=== PATIENT | male | born 1960 | race Caucasian/White ===

== ENCOUNTER 2021-04-12 16:43 | Inpatient (IN) ==
[2021-04-12 17:50] LABS: ABS Basophils 0.1 10^3/ul (0-0.2); ABS Eosinophils 0.2 10^3/ul (0-0.6); ABS Lymphocytes 1.2 10^3/ul (1.0-4.8); ABS Monocytes 0.7 10^3/ul (0-0.8); ABS Neutrophils 4.9 10^3/ul (1.5-7.7); Eosinophil % 2.6 %; Hematocrit 41 % (42-52); Hemoglobin 13.5 g/dL (14.0-18.0); Mean Corpuscular HGB Conc 33 g/dL (31-36); Mean Corpuscular Hemoglobin 32 pg (27-31); Mean Corpuscular Volume 97 fL (80-94); Mean Platelet Volume 7.9 fL (7.4-10.4); Nucleated Red Blood Cells % 0.1; Platelet Count 286 10^3/uL (150-450); Red Blood Count 4.25 10^6 /uL (4.18-5.48); Red Cell Distribution Width 14 % (10-15)
[2021-04-12 18:10] LABS: ALT 64 U/L (7-52); AST 76 U/L (13-39); Albumin 3.1 g/dL (3.2-5.2); Albumin/Globulin Ratio 1.5 (1-3); Alkaline Phosphatase 73 U/L (35-149); Anion Gap 2 mmol/L (2-11); Blood Urea Nitrogen 21 mg/dL (6-24); CO2 Carbon Dioxide 37 mmol/L (22-32); Calcium 8.6 mg/dL (8.6-10.3); Chloride 101 mmol/L (101-111); Globulin 2.1 g/dL (2-4); Glucose 84 mg/dL (70-100); Potassium 4.5 mmol/L (3.5-5.0); Sodium 140 mmol/L (135-145); Total Protein 5.2 g/dL (6.4-8.9); eGFR CKD-EPI 102.2 (>60)
[2021-04-12 18:31] LABS: Troponin I 0.04 ng/mL (<0.03)
[2021-04-12] MEDS ORDERED: Iohexol 300 (CONTRAST) 10 ML SDV IV ONE (18:43)
[2021-04-12] MEDS ORDERED: Iohexol 350 (CONTRAST) 500 ML MDV IV ONE (20:35)
[2021-04-12] MEDS ORDERED: Furosemide 40 mg/4 ml IV VIAL IV ONE (22:48)
[2021-04-12 23:24] LABS: Troponin I 0.04 ng/mL (<0.03)
[2021-04-12] MEDS: Albuterol/Ipratropium NEB.SOL (2.5/0.5 MG) 3 ML NEB.SOLN INH SCH (23:33)
[2021-04-12] MEDS: Enoxaparin 40 MG/0.4 ML SYR SUBCUT SCH (23:33)
[2021-04-13 00:06] LABS: TSH Ultra Thyroid Stim Horm 2.25 mcIU/mL (0.34-5.60)
[2021-04-13 00:18] LABS: Folate 12.01 ng/mL (5.90-24.80)
[2021-04-13 00:19] LABS: Vitamin B12 411 pg/mL (180-914)
[2021-04-13 00:39] LABS: Urine Appearance Clear; Urine Bilirubin Negative (Negative); Urine Blood Negative (Negative); Urine Color Yellow; Urine Glucose Negative (Negative); Urine Ketones Negative (Negative); Urine Nitrite Negative (Negative); Urine Protein Negative (Negative); Urine Specific Gravity 1.034 (1.002-1.030); Urine Urobilinogen Positive (Negative)
[2021-04-13 06:16] LABS: Hematocrit 39 % (42-52); Mean Corpuscular HGB Conc 33 g/dL (31-36); Mean Corpuscular Hemoglobin 32 pg (27-31); Mean Corpuscular Volume 98 fL (80-94); Mean Platelet Volume 7.4 fL (7.4-10.4); Platelet Count 273 10^3/uL (150-450); Red Blood Count 4.03 10^6 /uL (4.18-5.48); Red Cell Distribution Width 14 % (10-15); White Blood Count 5.2 10^3/uL (3.5-10.8)
[2021-04-13] MEDS: Albuterol/Ipratropium NEB.SOL (2.5/0.5 MG) 3 ML NEB.SOLN INH SCH ×2 (06:16→11:49)
[2021-04-13 06:36] LABS: Albumin/Globulin Ratio 1.6 (1-3); Calcium 8.3 mg/dL (8.6-10.3); Globulin 1.9 g/dL (2-4); Potassium 4.5 mmol/L (3.5-5.0); Total Bilirubin 0.5 mg/dL (0.2-1.0); Total Protein 4.9 g/dL (6.4-8.9); eGFR CKD-EPI 107.7 (>60)
[2021-04-13 06:43] LABS: ABS Basophils 0.1 10^3/ul (0-0.2); ABS Lymphocytes 0.5 10^3/ul (1.0-4.8); ABS Monocytes 0.1 10^3/ul (0-0.8); ABS Neutrophils 4.5 10^3/ul (1.5-7.7); Eosinophil % 0.1 %; Lymphocyte % 9.8 %
[2021-04-13] MEDS: Mometasone/Formoter 100/5 MDI INH SCH ×2 (07:58→19:29)
[2021-04-13 13:59] LABS: HIV 4th Generation Nonreactive (Nonreactive)
[2021-04-13 14:11] LABS: Hepatitis B Surface Antigen Nonreactive (Nonreactive)
[2021-04-13 14:16] LABS: Hepatitis A Ab IgM Negative (Negative)
[2021-04-13 14:17] LABS: Hepatitis B Core IgM Nonreactive (Nonreactive)
[2021-04-13 14:28] LABS: Hepatitis C Antibody Negative (Negative)
[2021-04-13] MEDS: Albuterol HFA INHALER 8 gm MDI INH SCH ×2 (15:27→19:25)
[2021-04-13] MEDS: Enoxaparin 40 MG/0.4 ML SYR SUBCUT SCH (20:38)
[2021-04-14 06:51] LABS: ABS Basophils 0.1 10^3/ul (0-0.2); ABS Eosinophils 0.1 10^3/ul (0-0.6); ABS Lymphocytes 1.2 10^3/ul (1.0-4.8); ABS Monocytes 0.6 10^3/ul (0-0.8); ABS Neutrophils 5.4 10^3/ul (1.5-7.7); Eosinophil % 1.1 %; Hematocrit 39 % (42-52); Hemoglobin 12.9 g/dL (14.0-18.0); Mean Corpuscular HGB Conc 33 g/dL (31-36); Mean Corpuscular Hemoglobin 32 pg (27-31); Mean Corpuscular Volume 98 fL (80-94); Mean Platelet Volume 7.8 fL (7.4-10.4); Platelet Count 295 10^3/uL (150-450); Red Blood Count 4.02 10^6 /uL (4.18-5.48); Red Cell Distribution Width 14 % (10-15); White Blood Count 7.4 10^3/uL (3.5-10.8)
[2021-04-14 07:07] LABS: ALT 48 U/L (7-52); AST 35 U/L (13-39); Albumin/Globulin Ratio 1.7 (1-3); Alkaline Phosphatase 57 U/L (35-149); Blood Urea Nitrogen 15 mg/dL (6-24); Calcium 8.3 mg/dL (8.6-10.3); Chloride 96 mmol/L (101-111); Globulin 1.8 g/dL (2-4); Glucose 89 mg/dL (70-100); Potassium 4.6 mmol/L (3.5-5.0); Sodium 137 mmol/L (135-145); Total Protein 4.8 g/dL (6.4-8.9); eGFR CKD-EPI 110.3 (>60)
[2021-04-14 07:09] LABS: CO2 Carbon Dioxide 41 mmol/L (22-32)
[2021-04-14] MEDS: Mometasone/Formoter 100/5 MDI INH SCH ×2 (08:39→22:20)
[2021-04-14] MEDS: Albuterol HFA INHALER 8 gm MDI INH SCH ×4 (08:40→22:17)
[2021-04-14] MEDS: Enoxaparin 40 MG/0.4 ML SYR SUBCUT SCH (22:21)
[2021-04-15 05:03] LABS: ABS Basophils 0.1 10^3/ul (0-0.2); ABS Eosinophils 0.1 10^3/ul (0-0.6); ABS Lymphocytes 1.4 10^3/ul (1.0-4.8); ABS Monocytes 0.6 10^3/ul (0-0.8); Eosinophil % 1.2 %; Hematocrit 39 % (42-52); Hemoglobin 12.6 g/dL (14.0-18.0); Lymphocyte % 18.9 %; Mean Corpuscular HGB Conc 33 g/dL (31-36); Mean Corpuscular Hemoglobin 32 pg (27-31); Mean Corpuscular Volume 98 fL (80-94); Mean Platelet Volume 7.2 fL (7.4-10.4); Platelet Count 276 10^3/uL (150-450); Red Blood Count 3.95 10^6 /uL (4.18-5.48); Red Cell Distribution Width 13 % (10-15); White Blood Count 7.2 10^3/uL (3.5-10.8)
[2021-04-15 05:23] LABS: ALT 40 U/L (7-52); AST 24 U/L (13-39); Albumin/Globulin Ratio 1.5 (1-3); Alkaline Phosphatase 54 U/L (35-149); Blood Urea Nitrogen 12 mg/dL (6-24); CO2 Carbon Dioxide 39 mmol/L (22-32); Calcium 8.7 mg/dL (8.6-10.3); Chloride 97 mmol/L (101-111); Glucose 86 mg/dL (70-100); Phosphorus 3.2 mg/dL (2.5-5.0); Potassium 4.6 mmol/L (3.5-5.0); Sodium 136 mmol/L (135-145); eGFR CKD-EPI 110.3 (>60)
[2021-04-15] MEDS: Albuterol HFA INHALER 8 gm MDI INH SCH ×4 (08:40→20:52)
[2021-04-15] MEDS: Mometasone/Formoter 100/5 MDI INH SCH ×2 (08:41→20:51)
[2021-04-15] MEDS: Nicotine PATCH 21 MG/24 HR PATCH TRANSDERM SCH (09:04)
[2021-04-15 10:37] LABS: PO2 Arterial 69 mmHg (80-100)
[2021-04-15 10:43] LABS: PCO2 Arterial 72 mmHg (35-45)
[2021-04-15] MEDS ORDERED: COVID-19 VACCINE, MRNA(MODERNA) BOOSTER/PF 50 MCG/0.25 ML IM ONE (15:30)
[2021-04-15] MEDS: Enoxaparin 40 MG/0.4 ML SYR SUBCUT SCH (19:38)
[2021-04-16 06:12] LABS: Hematocrit 40 % (42-52); Mean Corpuscular HGB Conc 33 g/dL (31-36); Mean Corpuscular Hemoglobin 32 pg (27-31); Mean Corpuscular Volume 98 fL (80-94); Mean Platelet Volume 7.7 fL (7.4-10.4); Platelet Count 283 10^3/uL (150-450); Red Blood Count 4.08 10^6 /uL (4.18-5.48); Red Cell Distribution Width 13 % (10-15); White Blood Count 6.7 10^3/uL (3.5-10.8)
[2021-04-16 06:39] LABS: Albumin 3.1 g/dL (3.2-5.2); Albumin/Globulin Ratio 1.6 (1-3); Calcium 8.6 mg/dL (8.6-10.3); Globulin 1.9 g/dL (2-4); Potassium 4.5 mmol/L (3.5-5.0); Total Bilirubin 0.3 mg/dL (0.2-1.0); eGFR CKD-EPI 110.8 (>60)
[2021-04-16] MEDS: Albuterol HFA INHALER 8 gm MDI INH SCH ×4 (08:35→20:04)
[2021-04-16] MEDS: Mometasone/Formoter 100/5 MDI INH SCH ×2 (08:36→20:04)
[2021-04-16] MEDS: Nicotine PATCH 21 MG/24 HR PATCH TRANSDERM SCH (08:57)
[2021-04-16] MEDS ORDERED: Flu vaccine *QUAD* 2021-22* 0.5 ML SYRINGE IM ONE (09:00)
[2021-04-16] MEDS ORDERED: Pneumococcal Vac 23-Polyvalent IM ONE (10:00)
[2021-04-16 13:44] VITALS: BP 128/87
== END 2021-04-16 20:40 | disposition home or self-care (01) | DRG 140 ==
LOC: ED 16:43 → EDHOLD 22:15 → SUATTDRO 22:15 → MEDTELE 04-13 11:26
PROVIDERS: ADMIT Internal Medicine; ATTEND Internal Medicine

== ENCOUNTER 2022-03-26 09:03 | Inpatient (IN) ==
[2022-03-26] MEDS ORDERED: Albuterol HFA INHALER 8 gm MDI INH ONE (09:21)
[2022-03-26] MEDS ORDERED: methylPREDNISolone SOD SUCC 125 mg 2 ML VIAL IV ONE (09:21)
[2022-03-26 09:46] LABS: ABS Lymphocytes 0.5 10^3/ul (1.0-4.8); ABS Monocytes 0.9 10^3/ul (0-0.8); ABS Neutrophils 5.7 10^3/ul (1.5-7.7); Hematocrit 41 % (42-52); Hemoglobin 13.4 g/dL (14.0-18.0); Lymphocyte % 7.3 %; Mean Corpuscular HGB Conc 33 g/dL (31-36); Mean Corpuscular Hemoglobin 31 pg (27-31); Mean Corpuscular Volume 94 fL (80-94); Mean Platelet Volume 7.3 fL (7.4-10.4); Platelet Count 219 10^3/uL (150-450); Red Blood Count 4.36 10^6 /uL (4.18-5.48); Red Cell Distribution Width 13 % (10-15); White Blood Count 7.1 10^3/uL (3.5-10.8)
[2022-03-26 09:59] LABS: INR 1.27 (0.88-1.18)
[2022-03-26 10:30] LABS: Albumin 3.1 g/dL (3.2-5.2); Albumin/Globulin Ratio 1.6 (1-3); Calcium 8.1 mg/dL (8.6-10.3); Globulin 1.9 g/dL (2-4); Magnesium 1.8 mg/dL (1.9-2.7); Potassium 4.9 mmol/L (3.5-5.0); Total Bilirubin 0.3 mg/dL (0.2-1.0); eGFR CKD-EPI 107.6 (>60)
[2022-03-26 11:16] LABS: High Sensitivity Troponin 1 Hr 434 pg/mL (<20)
[2022-03-26] MEDS ORDERED: Iohexol 350 (CONTRAST) 500 ML MDV IV ONE (11:32)
[2022-03-26 11:41] LABS: PO2 Arterial 71 mmHg (80-100)
[2022-03-26 11:48] LABS: PCO2 Arterial 81 mmHg (35-45)
[2022-03-26] MEDS ORDERED: cefTRIAXone 1 gm/50 mL D5W 1 GM/50 ML BAG IV ONE (12:10)
[2022-03-26 13:46] LABS: PO2 Arterial 92 mmHg (80-100)
[2022-03-26 13:48] LABS: PCO2 Arterial 82 mmHg (35-45)
[2022-03-26] MEDS ORDERED: Azithromycin 500 mg/250 ml NS 500 MG/250 ML BAG IVPB ONE (13:59)
[2022-03-26] MEDS ORDERED: Enoxaparin 40 MG/0.4 ML SYR SUBCUT SCH (15:00)
[2022-03-26] MEDS ORDERED: Albuterol HFA INHALER 8 gm MDI INH PRN (15:05)
[2022-03-26] MEDS ORDERED: Furosemide 40 mg/4 ml IV VIAL IV ONE (16:40)
[2022-03-26 17:18] LABS: C Reactive Protein 51.78 mg/L (<8.01)
[2022-03-26] MEDS: Enoxaparin 80 MG/0.8 ML SYR SUBCUT SCH (17:34)
[2022-03-26] MEDS: methylPREDNISolone SOD SUCC 40 mg/ml 1 ml VIAL IV SCH (17:34)
[2022-03-26 18:08] LABS: Erythrocyte Sed Rate 7 mm/Hr (0-19)
[2022-03-26] MEDS: Albuterol/Ipratropium NEB.SOL (2.5/0.5 MG) 3 ML NEB.SOLN INH SCH (21:16)
[2022-03-26] MEDS: Mometasone/Formoter 100/5 MDI INH SCH (21:16)
[2022-03-27] MEDS: Albuterol/Ipratropium NEB.SOL (2.5/0.5 MG) 3 ML NEB.SOLN INH SCH (00:47)
[2022-03-27] MEDS: methylPREDNISolone SOD SUCC 40 mg/ml 1 ml VIAL IV SCH ×3 (01:30→19:25)
[2022-03-27] MEDS: cefTRIAXone 1 gm/50 mL D5W 1 GM/50 ML BAG IV SCH (06:11)
[2022-03-27] MEDS: Enoxaparin 80 MG/0.8 ML SYR SUBCUT SCH ×2 (06:11→19:24)
[2022-03-27 06:24] LABS: ABS Lymphocytes 0.4 10^3/ul (1.0-4.8); ABS Monocytes 0.5 10^3/ul (0-0.8); ABS Neutrophils 6.4 10^3/ul (1.5-7.7); Eosinophil % 0.1 %; Hematocrit 42 % (42-52); Hemoglobin 13.4 g/dL (14.0-18.0); Lymphocyte % 5.4 %; Mean Corpuscular HGB Conc 32 g/dL (31-36); Mean Corpuscular Hemoglobin 31 pg (27-31); Mean Corpuscular Volume 96 fL (80-94); Mean Platelet Volume 7.9 fL (7.4-10.4); Platelet Count 204 10^3/uL (150-450); Red Blood Count 4.33 10^6 /uL (4.18-5.48); Red Cell Distribution Width 14 % (10-15); White Blood Count 7.3 10^3/uL (3.5-10.8)
[2022-03-27] MEDS ORDERED: Albuterol/Ipratropium NEB.SOL (2.5/0.5 MG) 3 ML NEB.SOLN INH SCH ×2 (07:00)
[2022-03-27 07:14] LABS: Calcium 7.2 mg/dL (8.6-10.3); Magnesium 1.6 mg/dL (1.9-2.7); Phosphorus 3.9 mg/dL (2.5-5.0); Potassium 4.4 mmol/L (3.5-5.0); eGFR CKD-EPI 120.5 (>60)
[2022-03-27] MEDS ORDERED: Magnesium Sulf 4 GM/100 ML IV 4,000 MG/100 ML BAG IVPB ONE (08:17)
[2022-03-27] MEDS ORDERED: Furosemide 40 mg/4 ml IV VIAL IV ONE (08:30)
[2022-03-27] MEDS: Mometasone/Formoter 100/5 MDI INH SCH ×2 (08:44→19:35)
[2022-03-27] MEDS ORDERED: Albuterol/Ipratropium NEB.SOL (2.5/0.5 MG) 3 ML NEB.SOLN INH PRN (09:17)
[2022-03-28] MEDS: methylPREDNISolone SOD SUCC 40 mg/ml 1 ml VIAL IV SCH ×3 (05:28→18:21)
[2022-03-28] MEDS: Enoxaparin 80 MG/0.8 ML SYR SUBCUT SCH ×2 (05:28→18:21)
[2022-03-28 06:38] LABS: ABS Lymphocytes 0.9 10^3/ul (1.0-4.8); ABS Monocytes 0.7 10^3/ul (0-0.8); ABS Neutrophils 6.8 10^3/ul (1.5-7.7); Hematocrit 37 % (42-52); Hemoglobin 12.3 g/dL (14.0-18.0); Lymphocyte % 11.2 %; Mean Corpuscular HGB Conc 33 g/dL (31-36); Mean Corpuscular Hemoglobin 31 pg (27-31); Mean Corpuscular Volume 94 fL (80-94); Mean Platelet Volume 7.5 fL (7.4-10.4); Platelet Count 203 10^3/uL (150-450); Red Blood Count 3.97 10^6 /uL (4.18-5.48); Red Cell Distribution Width 13 % (10-15); White Blood Count 8.5 10^3/uL (3.5-10.8)
[2022-03-28 07:14] LABS: C Reactive Protein 12.85 mg/L (<8.01); Calcium 8.4 mg/dL (8.6-10.3); eGFR CKD-EPI 122.1 (>60)
[2022-03-28 07:19] LABS: Potassium 5.1 mmol/L (3.5-5.0)
[2022-03-28] MEDS: Mometasone/Formoter 100/5 MDI INH SCH ×2 (07:32→19:05)
[2022-03-28] MEDS: cefTRIAXone 1 gm/50 mL D5W 1 GM/50 ML BAG IV SCH (10:39)
[2022-03-29] MEDS: methylPREDNISolone SOD SUCC 40 mg/ml 1 ml VIAL IV SCH ×3 (05:13→17:59)
[2022-03-29] MEDS: Enoxaparin 80 MG/0.8 ML SYR SUBCUT SCH ×2 (05:13→18:00)
[2022-03-29] MEDS: cefTRIAXone 1 gm/50 mL D5W 1 GM/50 ML BAG IV SCH (05:14)
[2022-03-29] MEDS: Mometasone/Formoter 100/5 MDI INH SCH ×2 (08:06→20:33)
[2022-03-29 10:06] LABS: ABS Lymphocytes 0.7 10^3/ul (1.0-4.8); ABS Monocytes 0.4 10^3/ul (0-0.8); ABS Neutrophils 6.5 10^3/ul (1.5-7.7); Hematocrit 37 % (42-52); Hemoglobin 12.2 g/dL (14.0-18.0); Lymphocyte % 9.2 %; Mean Corpuscular HGB Conc 33 g/dL (31-36); Mean Corpuscular Hemoglobin 31 pg (27-31); Mean Corpuscular Volume 93 fL (80-94); Mean Platelet Volume 7.6 fL (7.4-10.4); Platelet Count 209 10^3/uL (150-450); Red Blood Count 3.92 10^6 /uL (4.18-5.48); Red Cell Distribution Width 13 % (10-15); White Blood Count 7.6 10^3/uL (3.5-10.8)
[2022-03-29 10:24] LABS: Calcium 8.8 mg/dL (8.6-10.3); Magnesium 1.9 mg/dL (1.9-2.7); Potassium 4.9 mmol/L (3.5-5.0); eGFR CKD-EPI 111.2 (>60)
[2022-03-29 11:26] LABS: PO2 Arterial 61 mmHg (80-100)
[2022-03-29 11:29] LABS: PCO2 Arterial 72 mmHg (35-45)
[2022-03-30] MEDS: methylPREDNISolone SOD SUCC 40 mg/ml 1 ml VIAL IV SCH ×3 (02:12→17:07)
[2022-03-30] MEDS: Enoxaparin 80 MG/0.8 ML SYR SUBCUT SCH ×2 (05:55→17:07)
[2022-03-30] MEDS: cefTRIAXone 1 gm/50 mL D5W 1 GM/50 ML BAG IV SCH (05:56)
[2022-03-30 06:40] LABS: ABS Lymphocytes 0.6 10^3/ul (1.0-4.8); ABS Monocytes 0.4 10^3/ul (0-0.8); Hematocrit 37 % (42-52); Hemoglobin 12.6 g/dL (14.0-18.0); Lymphocyte % 7.6 %; Mean Corpuscular HGB Conc 34 g/dL (31-36); Mean Corpuscular Hemoglobin 31 pg (27-31); Mean Corpuscular Volume 93 fL (80-94); Mean Platelet Volume 7.5 fL (7.4-10.4); Platelet Count 224 10^3/uL (150-450); Red Blood Count 4.01 10^6 /uL (4.18-5.48); Red Cell Distribution Width 13 % (10-15); White Blood Count 8.1 10^3/uL (3.5-10.8)
[2022-03-30 06:59] LABS: Calcium 8.6 mg/dL (8.6-10.3); eGFR CKD-EPI 118.2 (>60)
[2022-03-30] MEDS: Mometasone/Formoter 100/5 MDI INH SCH ×3 (07:08→20:08)
[2022-03-30 07:20] LABS: Potassium 5.2 mmol/L (3.5-5.0)
[2022-03-31] MEDS: Enoxaparin 80 MG/0.8 ML SYR SUBCUT SCH ×2 (05:49→16:31)
[2022-03-31] MEDS: cefTRIAXone 1 gm/50 mL D5W 1 GM/50 ML BAG IV SCH (05:50)
[2022-03-31 06:30] LABS: ABS Basophils 0.1 10^3/ul (0-0.2); ABS Lymphocytes 1.7 10^3/ul (1.0-4.8); ABS Monocytes 0.8 10^3/ul (0-0.8); ABS Neutrophils 6.9 10^3/ul (1.5-7.7); Eosinophil % 0.1 %; Hematocrit 37 % (42-52); Hemoglobin 12.3 g/dL (14.0-18.0); Lymphocyte % 18.4 %; Mean Corpuscular HGB Conc 34 g/dL (31-36); Mean Corpuscular Hemoglobin 31 pg (27-31); Mean Corpuscular Volume 92 fL (80-94); Mean Platelet Volume 7.3 fL (7.4-10.4); Platelet Count 236 10^3/uL (150-450); Red Blood Count 3.99 10^6 /uL (4.18-5.48); Red Cell Distribution Width 13 % (10-15); White Blood Count 9.5 10^3/uL (3.5-10.8)
[2022-03-31 07:06] LABS: Calcium 8.8 mg/dL (8.6-10.3); Potassium 4.8 mmol/L (3.5-5.0); eGFR CKD-EPI 115.4 (>60)
[2022-03-31] MEDS: Mometasone/Formoter 100/5 MDI INH SCH ×2 (07:42→19:43)
[2022-04-01] MEDS: Enoxaparin 80 MG/0.8 ML SYR SUBCUT SCH (05:42)
[2022-04-01] MEDS: cefTRIAXone 1 gm/50 mL D5W 1 GM/50 ML BAG IV SCH (05:42)
[2022-04-01] MEDS: Mometasone/Formoter 100/5 MDI INH SCH (08:20)
[2022-04-01 10:16] LABS: Calcium 8.7 mg/dL (8.6-10.3); Potassium 4.2 mmol/L (3.5-5.0); eGFR CKD-EPI 110.6 (>60)
[2022-04-01 11:43] VITALS: BP 133/70
== END 2022-04-01 15:45 | disposition home or self-care (01) | DRG 133 ==
LOC: ED 09:03 → EDHOLD 14:55 → SUATTDRO 14:55 → MEDTELE 03-27 20:52
PROVIDERS: ADMIT Internal Medicine Critical Care Medicine; ATTEND Hospitalist

== ENCOUNTER 2023-12-02 15:00 | Inpatient (IN) ==
[2023-12-02 16:01] LABS: ABS Basophils 0.1 10^3/uL (0.0-0.1); ABS Eosinophils 0.3 10^3/uL (0.0-0.5); ABS Lymphocytes 1.6 10^3/uL (1.0-4.8); ABS Monocytes 0.6 10^3/uL (0.0-1.1); Eosinophil % 5.2 %; Hematocrit 39.1 % (38-53); Hemoglobin 12.8 g/dL (13.2-16.3); Lymphocyte % 28.6 %; Mean Corpuscular Hemoglobin 31.8 pg (27-33); Mean Corpuscular Hgb Conc 32.8 g/dL (31-36); Mean Corpuscular Volume 96.8 fL (80-97); Mean Platelet Volume 7.7 fL (7.5-11.2); Nucleated Red Blood Cells % 0.1 %/100WBC (0.0-0.8); Platelet Count 307 10^3/uL (150-450); Red Blood Count 4.04 10^6/uL (4.06-5.63); White Blood Count 5.5 10^3/uL (3.6-10.2)
[2023-12-02 16:13] LABS: INR 1.15 (0.85-1.14)
[2023-12-02 17:08] LABS: Albumin 3.9 g/dL (3.2-5.2); Albumin/Globulin Ratio 1.9 (1-3); Calcium 9.5 mg/dL (8.6-10.3); Creatinine, Serum 0.72 mg/dL (0.67-1.17); Globulin 2.1 g/dL (2-4); Potassium 4.5 mmol/L (3.5-5.0); Total Bilirubin 0.2 mg/dL (0.2-1.0); eGFR CKD-EPI 103.9 (>60)
[2023-12-02 22:24] LABS: Hematocrit 37.5 % (38-53); Hemoglobin 12.6 g/dL (13.2-16.3)
[2023-12-03] MEDS ORDERED: Albuterol HFA INHALER 8 gm MDI INH PRN (04:58)
[2023-12-03] MEDS: Pantoprazole VIAL 40 MG VIAL IV SCH (05:20)
[2023-12-03 05:42] LABS: ABS Basophils 0.1 10^3/uL (0.0-0.1); ABS Eosinophils 0.3 10^3/uL (0.0-0.5); ABS Lymphocytes 1.5 10^3/uL (1.0-4.8); ABS Monocytes 0.6 10^3/uL (0.0-1.1); ABS Neutrophils 2.6 10^3/uL (1.5-7.6); Eosinophil % 5.5 %; Hematocrit 36.1 % (38-53); Hemoglobin 12.3 g/dL (13.2-16.3); Lymphocyte % 29.7 %; Mean Corpuscular Volume 96.9 fL (80-97); Mean Platelet Volume 7.5 fL (7.5-11.2); Nucleated Red Blood Cells % 0.1 %/100WBC (0.0-0.8); Platelet Count 281 10^3/uL (150-450); Red Blood Count 3.72 10^6/uL (4.06-5.63); Red Cell Distribution Width 12.8 % (12-17); White Blood Count 4.9 10^3/uL (3.6-10.2)
[2023-12-03 06:14] LABS: Blood Urea Nitrogen 13 mg/dL (6-24); CO2 Carbon Dioxide 36 mmol/L (22-32); Calcium 8.6 mg/dL (8.6-10.3); Chloride 102 mmol/L (101-111); Glucose 88 mg/dL (70-100); Potassium 4.4 mmol/L (3.5-5.0); Sodium 136 mmol/L (135-145); eGFR CKD-EPI 109.8 (>60)
[2023-12-03 15:56] LABS: Hematocrit 37.3 % (38-53); Hemoglobin 12.5 g/dL (13.2-16.3)
[2023-12-04 06:32] LABS: ABS Basophils 0.1 10^3/uL (0.0-0.1); ABS Eosinophils 0.3 10^3/uL (0.0-0.5); ABS Lymphocytes 1.4 10^3/uL (1.0-4.8); ABS Monocytes 0.5 10^3/uL (0.0-1.1); ABS Neutrophils 2.4 10^3/uL (1.5-7.6); Eosinophil % 5.4 %; Hematocrit 38.4 % (38-53); Hemoglobin 12.8 g/dL (13.2-16.3); Lymphocyte % 29.7 %; Mean Corpuscular Hemoglobin 32.3 pg (27-33); Mean Corpuscular Hgb Conc 33.3 g/dL (31-36); Mean Corpuscular Volume 97.2 fL (80-97); Mean Platelet Volume 7.6 fL (7.5-11.2); Platelet Count 280 10^3/uL (150-450); Red Blood Count 3.95 10^6/uL (4.06-5.63); Red Cell Distribution Width 12.7 % (12-17); White Blood Count 4.6 10^3/uL (3.6-10.2)
[2023-12-04 07:07] LABS: Calcium 8.9 mg/dL (8.6-10.3); Creatinine, Serum 0.64 mg/dL (0.67-1.17); Potassium 4.6 mmol/L (3.5-5.0); eGFR CKD-EPI 107.7 (>60)
[2023-12-04 13:06] VITALS: BP 131/79
== END 2023-12-04 16:15 | disposition home or self-care (01) | DRG 253 ==
LOC: ED 15:00 → EDHOLD 12-03 03:52 → MED 12-03 08:03
PROVIDERS: ADMIT Hospitalist; ATTEND Internal Medicine Hematology & Oncology

== ENCOUNTER 2023-12-20 09:03 | Observation (INO) ==
[2023-12-20 10:16] LABS: ABS Lymphocytes 0.9 10^3/uL (1.0-4.8); ABS Monocytes 0.6 10^3/uL (0.0-1.1); ABS Neutrophils 3.4 10^3/uL (1.5-7.6); Eosinophil % 0.1 %; Hematocrit 37.8 % (38-53); Hemoglobin 12.5 g/dL (13.2-16.3); Lymphocyte % 19.2 %; Mean Corpuscular Hemoglobin 31.6 pg (27-33); Mean Corpuscular Volume 95.9 fL (80-97); Mean Platelet Volume 7.4 fL (7.5-11.2); Platelet Count 220 10^3/uL (150-450); Red Blood Count 3.95 10^6/uL (4.06-5.63); Red Cell Distribution Width 12.4 % (12-17); White Blood Count 4.9 10^3/uL (3.6-10.2)
[2023-12-20 10:29] LABS: Activated Partial Thrombo Time 36.1 seconds (26.0-38.0); INR 1.28 (0.85-1.14)
[2023-12-20 10:41] LABS: Albumin 3.6 g/dL (3.2-5.2); Albumin/Globulin Ratio 1.9 (1-3); C Reactive Protein 11.36 mg/L (<8.01); Calcium 8.2 mg/dL (8.6-10.3); Creatinine, Serum 0.56 mg/dL (0.67-1.17); Globulin 1.9 g/dL (2-4); Potassium 4.1 mmol/L (3.5-5.0); Total Bilirubin 0.3 mg/dL (0.2-1.0); Total Protein 5.5 g/dL (6.4-8.9); eGFR CKD-EPI 112.1 (>60)
[2023-12-20 12:06] LABS: High Sensitivity Troponin 1 Hr 12 pg/mL (<20)
[2023-12-20] MEDS: Albuterol/Ipratropium NEB.SOL (2.5/0.5 MG) 3 ML NEB.SOLN INH ONE (13:29)
[2023-12-20] MEDS: Albuterol HFA INHALER 8 gm MDI INH ONE (13:39)
[2023-12-20] MEDS: Dexamethasone IV 4 MG/ML VIAL 1 ml VIAL IV SLOW PU ONE (14:38)
[2023-12-20] MEDS ORDERED: Albuterol HFA INHALER 8 gm MDI INH PRN (15:57)
[2023-12-20] MEDS: Nicotine PATCH 21 MG/24 HR PATCH TRANSDERM SCH (18:07)
[2023-12-20] MEDS: Remdesivir 100 mg Vial 200 MG in NS 0.9% 250 ml 210 ML IV ONE (18:12)
[2023-12-20] MEDS: cefTRIAXone 1 gm/50 mL D5W 1 GM/50 ML BAG IV SCH (18:13)
[2023-12-20 19:24] LABS: INR 1.15 (0.85-1.14)
[2023-12-20 19:43] LABS: Albumin 3.6 g/dL (3.2-5.2); Albumin/Globulin Ratio 1.7 (1-3); Calcium 8.6 mg/dL (8.6-10.3); Creatinine, Serum 0.71 mg/dL (0.67-1.17); Globulin 2.1 g/dL (2-4); Potassium 4.7 mmol/L (3.5-5.0); Total Bilirubin 0.2 mg/dL (0.2-1.0); Total Protein 5.7 g/dL (6.4-8.9); eGFR CKD-EPI 104.4 (>60)
[2023-12-21 07:00] LABS: ABS Lymphocytes 0.7 10^3/uL (1.0-4.8); ABS Monocytes 0.5 10^3/uL (0.0-1.1); Hematocrit 36.9 % (38-53); Hemoglobin 12.5 g/dL (13.2-16.3); Lymphocyte % 22.3 %; Mean Corpuscular Hemoglobin 32.5 pg (27-33); Mean Corpuscular Hgb Conc 33.9 g/dL (31-36); Mean Corpuscular Volume 95.9 fL (80-97); Mean Platelet Volume 7.7 fL (7.5-11.2); Platelet Count 191 10^3/uL (150-450); Red Blood Count 3.85 10^6/uL (4.06-5.63); Red Cell Distribution Width 12.4 % (12-17); White Blood Count 3.2 10^3/uL (3.6-10.2)
[2023-12-21 07:14] LABS: INR 1.12 (0.85-1.14)
[2023-12-21 07:25] LABS: Albumin 3.3 g/dL (3.2-5.2); Albumin/Globulin Ratio 1.7 (1-3); Calcium 8.3 mg/dL (8.6-10.3); Creatinine, Serum 0.46 mg/dL (0.67-1.17); Globulin 1.9 g/dL (2-4); Potassium 4.6 mmol/L (3.5-5.0); Total Bilirubin 0.2 mg/dL (0.2-1.0); Total Protein 5.2 g/dL (6.4-8.9)
[2023-12-21] MEDS: FLUTICAS/UMECLI/VILANT 100-62.5-25 MDI (NF) INH SCH (08:04)
[2023-12-21] MEDS ORDERED: Polyethylene Glycol 3350 17 GM PACKET PO PRN (15:14)
[2023-12-21] MEDS: Remdesivir 100 mg Vial 100 MG in NS 0.9% 250 ml 230 ML IV SCH (20:13)
[2023-12-22 06:42] LABS: ABS Lymphocytes 1.9 10^3/uL (1.0-4.8); ABS Monocytes 0.6 10^3/uL (0.0-1.1); ABS Neutrophils 2.8 10^3/uL (1.5-7.6); Eosinophil % 0.2 %; Hematocrit 36.2 % (38-53); Hemoglobin 12.3 g/dL (13.2-16.3); Lymphocyte % 35.2 %; Mean Corpuscular Hemoglobin 32.4 pg (27-33); Mean Corpuscular Hgb Conc 34.1 g/dL (31-36); Mean Platelet Volume 7.9 fL (7.5-11.2); Platelet Count 193 10^3/uL (150-450); Red Blood Count 3.81 10^6/uL (4.06-5.63); Red Cell Distribution Width 12.2 % (12-17); White Blood Count 5.3 10^3/uL (3.6-10.2)
[2023-12-22 06:48] LABS: INR 1.21 (0.85-1.14)
[2023-12-22 07:01] LABS: Albumin 3.2 g/dL (3.2-5.2); Albumin/Globulin Ratio 1.8 (1-3); Calcium 8.6 mg/dL (8.6-10.3); Creatinine, Serum 0.53 mg/dL (0.67-1.17); Globulin 1.8 g/dL (2-4); Magnesium 1.8 mg/dL (1.9-2.7); Potassium 4.3 mmol/L (3.5-5.0); Total Bilirubin 0.2 mg/dL (0.2-1.0)
[2023-12-22] MEDS: Magnesium Sulfate 2 gm BAG 2 GM/50 ML BAG IVPB ONE (09:07)
[2023-12-22 16:41] VITALS: BP 136/114
== END 2023-12-22 18:30 | disposition home or self-care (01) ==
LOC: ED 09:03 → EDHOLD 14:43 → INTOOBSV 14:43 → MEDTELE 19:07
PROVIDERS: ADMIT Student in an Organized Health Care Education/Training Program; ATTEND Student in an Organized Health Care Education/Training Program